=== PATIENT | female | born 1965 | race Caucasian/White ===

== ENCOUNTER 2017-06-23 11:59 | Day surgery (SDC) | payer OTHER ==
[~2017-06-23] VITALS: Ht 167.6 cm; Wt 87.5 kg
[2017-06-23] MEDS ORDERED: LEVOTHYROXINE (13:11)
[2017-06-23 13:13] VITALS: Ht 167.6 cm; Wt 87.5 kg
[2017-06-23 13:58] VITALS: BP 107/62; PULSE 63; RESP 15
--- NOTE | 2017-06-23 15:07 | OPPN ---
Date/Time of Note Date/Time of Note DATE: 06/23/17 TIME: 15:02 Operative Report Preoperative Diagnosis Abdominal pain Chronic heartburn Screening Postoperative Diagnosis Vital hernia Gastroesophageal reflux disease Gastritis Internal hemorrhoids No colon neoplasm is identified Redundant colon Operation/Procedure Performed Esophagogastroduodenoscopy and biopsy Colonoscopy Surgeon see signature line medical assistant supervisor None Anesthesia: moderate sedation Estimated blood loss: none Transfusion Required none Specimen Gastric mucosal biopsy Grafts/Implants none Complications none LUISITO HITCHCOCK MD Jun 23, 2017 15:07
[2017-06-23] MEDS ORDERED: FENTAnyl 50 MCG/ML VIAL ONE ×2 (15:14→15:15)
[2017-06-23] MEDS ORDERED: MIDAZOLAM 1 MG/ML 2 ML INJ ONE ×3 (15:14)
--- NOTE | 2017-06-23 17:34 | GILP ---
DATE OF PROCEDURE: 06/23/2017 PROCEDURE PERFORMED: 1. Esophagogastroduodenoscopy and biopsy. 2. Colonoscopy. SURGEON: Gertrudis Moreno MD POSTOPERATIVE DIAGNOSES: 1. Abdominal pain. 2. Screening colonoscopy. POSTOPERATIVE DIAGNOSES: 1. Hiatal hernia. 2. Gastroesophageal reflux disease. 3. Gastritis, with erosions. 4. Gastric mucosal biopsies were taken for Helicobacter pylori test. 5. Colonoscopy all the way to the cecum. 6. Redundant colon. 7. Internal hemorrhoids. 8. No colon neoplasm was identified. INDICATION FOR THE PROCEDURE: Ms. Anjali Nick is a 52-year-old female patient who had upper abdominal pain and chronic heartburn not responding to therapy. She also needed a screening colonoscopy. The procedures and possible complications were well explained to the patient. She understood and consented to the procedures. DESCRIPTION OF PROCEDURE: Under the influence of fentanyl and Versed, the colonoscope was carefully introduced into the rectum. Under direct vision, it was advanced all the way to the cecum. FINDINGS: Patient had redundant colon. She had internal hemorrhoids. No colon neoplasm was identified. Upper endoscope was carefully inserted into the esophagus under direct vision. It was advanced into the stomach, into the pylorus, into the duodenal bulb, and descending duodenum. FINDINGS: Esophagus. Patient had a hiatal hernia and gastroesophageal reflux disease. Stomach: She had gastritis. Gastric mucosal biopsies were taken for H. pylori test. Duodenum was normal. She tolerated the procedures very well. There was no complication from the procedures. At the end of the procedure, she was awake, with stable vital signs, and she was discharged home in care of her family. IMPRESSION: 1. Hiatal hernia. 2. Gastroesophageal reflux disease. 3. Gastritis, with erosions. 4. Gastric mucosal biopsies were taken for Helicobacter pylori test. 5. Colonoscopy all the way to the cecum. 6. Item redundant colon. 7. Internal hemorrhoids. 8. No colon neoplasm was identified. PLAN: 1. Omeprazole 40 mg p.o. q.a.m. 2. Await H. pylori test report. Dictated By: MD TALIB Workman/lazarus/caitlin /Document#: [id number] CC: Gertrudis Moreno MD;*[facility]*
== END 2017-06-23 17:49 | disposition home or self-care (01) ==
LOC: GIL 11:59
PROVIDERS: ATTEND Internal Medicine Gastroenterology
DX: Z12.11 Encounter for screening for malignant neoplasm of colon (principal); K44.9 Diaphragmatic hernia without obstruction or gangrene; K21.9 Gastro-esophageal reflux disease without esophagitis; K29.60 Other gastritis without bleeding; K64.8 Other hemorrhoids
CPT/HCPCS: 43239; 45378; 87081; J2250; J3010; Z7610

== ENCOUNTER 2018-03-12 06:15 | Day surgery (SDC) | END 2018-03-12 11:20 | disposition home or self-care (01) ==